=== PATIENT | male | born 1955 | race American Indian/Alaskan Native ===

== ENCOUNTER 2024-01-06 21:12 | Emergency (ER) | payer OTHER, SELFPAY ==
[2024-01-06 21:19] VITALS: BP 161/77
[2024-01-06 21:23] VITALS: BP 161/75
[2024-01-06 21:33] LABS: % Basophils 0.6 % (0-2); % Eosinophils 1.4 % (0-6); % Immature Granulocytes 1.9 % (0-0.5); % Lymphocytes 44.3 % (20.5-51.1); % Monocytes 9.2 % (1.7-9.3); % Neutrophils 42.6 % (42.2-75.2); Absolute Basophils 0.1 10^3/uL (0-0.2); Absolute Eosinophils 0.2 10^3/uL (0-0.7); Absolute Immature Granulocytes 0.2 10^3/uL (0-0.05); Absolute Lymphocytes 5.2 10^3/uL (1.2-3.4); Absolute Monocytes 1.1 10^3/uL (0.1-0.6); Hematocrit 46.3 % (39.0-52.0); Hemoglobin 16.2 g/dL (13.0-18.0); Mean Corpuscular Hgb 29.9 pg (27.0-31.0); Mean Corpuscular Volume 85.4 fL (80.0-94.0); Mean Platelet Volume 9.6 fL (7.4-10.4); Nucleated Red Blood Cells % 0 % (-); Platelet Count 282 10^3/uL (130-400); Red Blood Cell Count 5.42 10^6/uL (4.70-6.10); Red Cell Dist. Width 13.5 % (11.5-14.5); White Blood Cell Count 11.8 10^3/uL (4.8-10.8)
[2024-01-06 21:44] LABS: COVID-19 Antigen Negative (Negative)
[2024-01-06 21:45] LABS: ALT (SGPT) 20 U/L (0-50); AST (SGOT) 30 U/L (17-59); Albumin 4.8 g/dl (3.5-5.0); Alkaline Phosphatase 87 U/L (38-126); Blood Urea Nitrogen 19 mg/dl (9-20); Calcium 9.7 mg/dl (8.4-10.2); Carbon Dioxide 19 mmol/L (22-30); Chloride 103 mmol/L (98-107); Glucose 195 mg/dl (70-99); Potassium 3.8 mmol/L (3.5-5.1); Sodium 138 mmol/L (135-145); Total Bilirubin 0.5 mg/dl (0.2-1.3); Total Protein 7.5 g/dl (6.3-8.2); eGFR > 60.00
[2024-01-06 21:55] LABS: Troponin I < 0.012 ng/ml
[2024-01-06 22:00] VITALS: BP 145/67
--- NOTE | 2024-01-06 22:16 | ED.GENMED ---
History of Present Illness
General
Chief Complaint: Abdominal Symptoms
Source: patient and spouse
Exam Limitations: none
Time Seen by Provider: 01/06/24 21:56
History of Present Illness
History of Present Illness:
This is a 68 year old male that comes in with c/o Vomiting, dizziness and sweating. State that he was watching TV when he started to sweat, got dizzy and vomited. states that he felt like he was going to fall down. Denies any fever, chills,
chest pain, SOB, abd pain, diarrhea, headache, ruianry burning.
Past History
Past History
ED Past Medical History: IDDM and [place]
ED Past Surgical History: Cardiac (Stent)
Social History
Tobacco: Non-smoker
Alcohol: None
Drug: None
Personal:
Living: with family
Review of Systems
Review of Systems
All Other Systems: ROS reviewed and negative except as documented in HPI and ROS
Constitutional: Reports no symptoms; Denies fever or chills
EENT: Reports no symptoms
Respiratory: Reports no symptoms; Denies cough or trouble breathing
Cardiac: Reports no symptoms; Denies chest pain
ABD/GI: Reports nausea and vomiting; Denies abdominal pain or diarrhea
: Reports no symptoms; Denies dysuria, frequency or urgency
Skin: Reports no symptoms
Neurological: Reports dizzy; Denies headache
Psychiatric: Reports no symptoms
Phy Exam
General Physical Exam
General Presentation: no apparent distress
General age: appears stated age
General Skin: warm and dry
General Habitus: normal
General Mental: alert
General Hydration: dry mucous membranes
ENT Exam
ENT Exam: TM's normal, pharynx normal and neck supple
Eye Exam
Eye Exam: EOMI and other (Dizzy after turning head sided to side)
Cardiovascular Exam
Cardiovascular Exam: regular rate/rhythm, no edema, no murmur and normal peripheral pulses
Pulmonary Exam
Pulmonary Exam: lungs clear, no respiratory distress, no rales, chest non tender, no crackles, no rhonchi, no wheezing and no cough
Gastrointestinal Exam
Gastrointestinal Exam: normal bowel sounds, non tender, soft, no pulsatile mass, non distended and other (Obese)
Musculoskeletal Exam
Musculoskeletal Exam: full ROM and no edema
Skin Exam
Skin Exam: normal color, warm/dry, no rash and no petechia
Psychiatric Exam
Psychiatric Exam: normal mood/affect
Course
Orders/Labs/Results
Orders:
Orders
01/06/24 21:17
Electrocardiogram (*1) Urgent
Reason for Study: Abdominal Pain
01/06/24 21:18
EKG- Treatment ONCE
01/06/24 21:26
COVID-19 Antigen Urgent
Source: Nasal Swab
Complete Blood Count/With Diff Urgent
Comprehensive Metabolic Panel Urgent
Troponin I Urgent
01/06/24 22:15
CT Head W/o Iv Contrast Urgent
Comment:
Reason For Exam: Dizziness
0.9% Sodium Chloride 1000 ml [Nss] 1,000 ml IV BOLUS
Meclizine [Antivert] 25 mg PO NOW STA
Ondansetron Injectable [Zofran] 4 mg IV NOW STA
01/07/24 00:39
Troponin I Urgent
Abnormal Lab Results
01/06/24
21:26
WBC 11.8 H 10^3/uL
(4.8-10.8)
Abs Immat Gran (auto) 0.2 H 10^3/uL
(0-0.05)
Absolute Lymphs (auto) 5.2 H 10^3/uL
(1.2-3.4)
Absolute Monos (auto) 1.1 H 10^3/uL
(0.1-0.6)
Immature Gran % 1.9 H %
(0-0.5)
Carbon Dioxide 19 L mmol/L
(22-30)
Glucose 195 H mg/dl
(70-99)
01/06/24 21:26
01/06/24 21:26
WBC very slightly elevated. Glucose nonfasting (Diabetic), troponin <0.012, COVID negative. Second Troponin <0.012
Vital Signs
Initial and Last Documented VS:
Initial Vital Signs
Temp Pulse Resp BP Pulse Ox
97.9 F 75 16 161/77 96
01/06/24 21:19 01/06/24 21:19 01/06/24 21:19 01/06/24 21:19 01/06/24 21:19
Last Documented Vital Signs
Temp Pulse Resp BP Pulse Ox
97.9 F 76 25 130/85 91
01/06/24 21:19 01/07/24 00:45 01/07/24 00:45 01/07/24 00:00 01/07/24 00:30
MDM/Problems Addressed
Differential Diagnosis Includes:
Vertigo, Viral syndrome
MDM/Problems Addressed:
This is a 68 year old male that comes in with c/o dizziness and vomiting. States that he was sitting watching TV when he started to get dizzy, sweaty and vomited. States that he felt like he was going to fall.
Wll get labs CT head, and give IV fluids.
Into see patient and . Patient was sleeping. Explained to his that the CT of the head was normal along with his blood work and he was negative for COVID. She states that he was feeling better.
Patient was able to walk to the bathroom and said he was feeling better. Will dischrage home.
Chronic conditions affecting care: DM
Acute Exacerbation and/or Progression of Chronic Illness:
NA
*Radiology
Radiology exam reviewed: radiology read reviewed (CT head-NO acute intracranial abnormality noted. )
*Pulse Oximetry
Patient hypoxic: no
*EKG
Interpreted by ED Provider?: Yes
Heart Rate: 73
Rate: normal
Rhythm: sinus
[place]: left axis deviation
Interval: normal interval
QRS Pattern: right bundle branch block
Ischemia: T-wave inversion (II, III, aVF, V1, V2, V3, V4, V5,, V6 )
*Garage Worker Interpretation
Rate: normal
Heart Rate: 70
Rhythm: sinus
*Critical Care Note
Total Time (30-74mins, 75-104mins- exclusive of procedures): Not Applicable
ED Attending Note
-
Portions of this chart may have been created with voice recognition software.� Occasional wrong word or��sound alike� substitutions may have occurred due to the inherent limitations of voice recognition software.
Discharge Plan
Departure
Patient Disposition: Home (Routine Discharge)
Date of Disposition: 01/07/24
Time of Disposition: 00:57
Patient with high blood pressure during this ER visit?: Yes
Condition: Good
Covid-19: Negative COVID-19
Discharge Problem:
Dizziness, Vertigo
Instructions: Nausea and Vomiting, Adult (DC), Vestibular Exercises, Dizziness, Adult ED, Vertigo ED, BLOOD PRESSURE
Prescriptions:
New
meclizine [Antivert] 50 mg tablet
50 mg PO BID PRN (Reason: dizziness) Qty: 8 0RF
Referrals:
Dimitri Zuniga MD [Family Provider] - Follow up in 2-3 days
Activity Restrictions/Additional Instructions:
As discussed, your blood work is normal. You are negative for COVID and your CT of the head is normal. Please increase your water intake to 8-8oz glasses daily. Follow up with the family doctor for recheck. This is most likely vertigo. You have had
a prescription sent to your Pharmacy for Antivert that will help with the dizziness. This may make you tired. Please no driving when taking. IF YOU HAVE INCREASED DIZZNESS, OR YOU HAVE ANY OTHER CONCERNS PLEASE RETURN TO THE EMEGENCY ROOM
Interventions
Interventions:
*Risk Screen - Suicide Last Done: 01/06/24 21:20
*General Assessment Last Done: 01/06/24 21:20
*Neglect/Abuse Screening Last Done: 01/06/24 21:20
*ED COVID-19 Vaccine History Last Done: 01/06/24 21:20
[id number] Assessment Last Done: 01/06/24 23:58
Discharge Date and Time
Print Language: MONGOLIAN
[2024-01-06] MEDS: ANTIVERT 25 MG PO (22:35)
[2024-01-06] MEDS: NSS 1000 IV (22:35)
[2024-01-06] MEDS: ZOFRAN 4 MG IV (22:35)
[2024-01-06 22:37] VITALS: BP 142/52
[2024-01-06 23:00] VITALS: BP 132/46
[2024-01-07] VITALS: BP 130/85
[2024-01-07 01:30] VITALS: BP 128/54
[2024-01-07 02:51] LABS: Troponin I < 0.012 ng/ml
--- NOTE | 2024-01-07 02:55 | DOWNTIME ---
There was a [email or web address] Client [employer] Panel [employer]er Downtime on 01/07/2024 from 0100 to 01/07/2024 at 0252. Downtime documentation of patient's care, including medication administrations, has been reconciled in the electronic record per guidelines. Refer to the
patient's paper chart under the miscellaneous tab to see printed paper medication records and downtime forms.
== END 2024-01-07 02:07 | disposition home or self-care (01) ==
LOC: EMR 21:12
PROVIDERS: Clinical Nurse Specialist Family Health; Student in an Organized Health Care Education/Training Program; EMERGENCY PHYSICIAN Emergency Medicine; FAMILY PHYSICIAN Internal Medicine
DX: R42 Dizziness and giddiness (principal); R11.2 Nausea with vomiting, unspecified; R61 Generalized hyperhidrosis; Z11.52 Encounter for screening for COVID-19; R03.0 Elevated blood-pressure reading, without diagnosis of hypertension; I45.10 Unspecified right bundle-branch block; E11.9 Type 2 diabetes mellitus without complications; I25.2 Old myocardial infarction; Z79.4 Long term (current) use of insulin; Z95.5 Presence of coronary angioplasty implant and graft
CPT/HCPCS: 99285; 96374; 96361; 70450; 80053; 84484; 85025; 87811; 93005